=== PATIENT | male | born 1955 | race Caucasian/White ===

== ENCOUNTER → 2017-08-13 | Outpatient (CLI) | payer OTHER | END | disposition home or self-care (01) | LOC: CFH 09:25 | PROVIDERS: ATTEND Orthopaedic Surgery | DX: M48.06 Spinal stenosis, lumbar region (principal); M48.07 Spinal stenosis, lumbosacral region; Z98.1 Arthrodesis status; Z98.890 Other specified postprocedural states | CPT/HCPCS: 72110 ==

== ENCOUNTER 2018-03-30 08:56 | Inpatient (IN) | payer OTHER ==
[~2018-03-30] VITALS: Ht 175.3 cm; Wt 83.6 kg
[2018-03-30] MEDS ORDERED: CHOL100011 PO (09:38)
[2018-03-30] MEDS ORDERED: TRAM50TA2 PO (09:38)
[2018-03-30] MEDS ORDERED: TIZA4CAP PO (09:38)
[2018-03-30] MEDS ORDERED: ATOR40TA78 PO (09:38)
[2018-03-30] MEDS ORDERED: ZEBETA PO (09:38)
[2018-03-30] MEDS ORDERED: OMEG-160 PO (09:38)
[2018-03-30] MEDS ORDERED: ASPI-650 PO (09:38)
[2018-03-30] MEDS ORDERED: MAGN300C PO (09:38)
[2018-03-30] MEDS ORDERED: NITR4.1S2 TL (09:38)
[2018-03-30] MEDS ORDERED: LACT1CAP5 PO (09:38)
[2018-03-30] MEDS ORDERED: LISI-170 PO (09:38)
[2018-03-30 09:56] LABS: BASOPHILS # (AUTO) 0.01 x10^3/uL (0-0.1); BASOPHILS % (AUTO) 0 % (0-1); EOSINOPHILS # (AUTO) 0.01 x10^3/uL (0-0.4); EOSINOPHILS % (AUTO) 0 % (1-7); LYMPHOCYTES # (AUTO) 1.33 x10^3/uL (1-3.4); LYMPHOCYTES % (AUTO) 14 % (22-44); MD NO; MEAN CORPUSCULAR HGB CONC 33.3 g/dL (33.2-36.2); MEAN CORPUSCULAR VOLUME 96.2 fL (81-97); MEAN PLATELET VOLUME 10.7 fL (7.4-10.4); MONOCYTES # (AUTO) 0.59 x10^3/uL (0.2-0.8); MONOCYTES % (AUTO) 6 % (2-9); NEUTROPHILS # (AUTO) 7.84 x10^3/uL (1.8-6.8); NEUTROPHILS % (AUTO) 80 % (42-75); PLATELET COUNT 198 x10^3/uL (130-400); RED BLOOD COUNT 4.65 x10^6/uL (4.38-5.82); RED CELL DISTRIBUTION WIDTH 16.3 % (9.4-14.8)
[2018-03-30] MEDS ORDERED: SODIUM CHLORIDE FLUSH 10ML SYR IVF ONE (10:00)
[2018-03-30] MEDS ORDERED: SODIUM CHLORIDE 0.9% 1,000ML IVBOLUS ONE (10:00)
[2018-03-30 10:07] LABS: ALBUMIN 2.9 g/dL (3.4-5.0); ANION GAP 10 mmol/L (5-15); CALCIUM 8.4 mg/dL (8.5-10.1); CHLORIDE 108 mmol/L (98-107)
[2018-03-30 10:10] LABS: ALANINE AMINOTRANSFERASE 30 U/L (12-78); ALKALINE PHOSPHATASE 168 U/L (45-117); BILIRUBIN,TOTAL 0.9 mg/dL (0.2-1.0); CREATININE 0.67 mg/dL (0.7-1.3); TOTAL PROTEIN 7.3 g/dL (6.4-8.2)
[2018-03-30 10:27] LABS: HEMOGLOBIN A1C 6.3 % (4.2-6.3)
[2018-03-30] MEDS ORDERED: OMNIPAQUE 350 MG/ML, 100ML BOTTLE ONE (10:53)
[2018-03-30 11:42] LABS: MICROSCOPIC NOT IND
[2018-03-30 11:52] LABS: CULTURE INDICATED? NO
[2018-03-30] MEDS ORDERED: CEFOTETAN PMX 2GM/50ML 50 ML IV ONE (13:00)
[2018-03-30] MEDS ORDERED: METRONIDAZOLE PMX 500MG/100ML 100 ML IV ONE (13:00)
[2018-03-30] MEDS ORDERED: METRONIDAZOLE PMX 500MG/100ML 100 ML ONE (13:07)
[2018-03-30 15:30] LABS: INTERNATIONAL NORMALIZED RATIO 1.18 (0.93-1.1); PROTHROMBIN TIME 12.1 Seconds (9.6-11.5)
[2018-03-30] MEDS ORDERED: ONDANSETRON ODT 4 MG PO PRN (15:30)
[2018-03-30] MEDS ORDERED: hydrALAzine 20 MG/ML, 1ML IVPush PRN (15:30)
[2018-03-30] MEDS ORDERED: LORazepam 2 MG/ML, 1ML IVPush PRN (15:30)
[2018-03-30] MEDS ORDERED: ONDANSETRON 2MG/ML, 2ML IVPush PRN (15:30)
[2018-03-30] MEDS ORDERED: POTASSIUM CHLORIDE 20 MEQ in LACTATED RINGERS 1,000 ML IV SCH (15:30)
[2018-03-30 15:47] LABS: CLOSTRIDIUM DIFFICILE ANTIGEN NEGATIVE; CLOSTRIDIUM DIFFICILE TOXIN NEGATIVE (Negative)
[2018-03-30 15:50] VITALS: BP 128/82
[2018-03-30 16:00] LABS: HCT (SEDRATE) 44.7 % (39.2-51.8)
[2018-03-30] MEDS: HEPARIN 5,000 UNITS/ML, 1ML SQ SCH (16:35)
[2018-03-30] MEDS: POTASSIUM CHLORIDE 20 MEQ, MAGNESIUM SULFATE 1 GM, FOLIC ACID 1 MG, THIAMINE 100 MG, MV... IV SCH (16:36)
[2018-03-30] MEDS: morphine SULFATE 10 MG/ML, 1ML IVPush PRN (16:36)
[2018-03-30] MEDS: PIPERACILLIN/TAZO/PMX 3.375GM 50 ML IV SCH ×2 (16:36→21:06)
[2018-03-30 17:16] LABS: ALANINE AMINOTRANSFERASE 25 U/L (12-78); ALBUMIN 2.6 g/dL (3.4-5.0); BILIRUBIN, DIRECT 0.6 mg/dL (0.1-0.2); IRON LEVEL 83 mcg/dL (65-175)
[2018-03-30 17:20] LABS: % IRON SATURATION 30 % (20-55); ALKALINE PHOSPHATASE 147 U/L (45-117); BILIRUBIN,INDIRECT 0.4 mg/dL (0.0-2.0); TOTAL IRON BINDING CAPACITY 276 mcg/dL (250-450); TOTAL PROTEIN 6.3 g/dL (6.4-8.2)
[2018-03-30 19:10] VITALS: BP 109/69
[2018-03-31 01:14] VITALS: BP 140/85
[2018-03-31] MEDS: HEPARIN 5,000 UNITS/ML, 1ML SQ SCH ×4 (01:20→23:21)
[2018-03-31] MEDS: morphine SULFATE 10 MG/ML, 1ML IVPush PRN ×2 (01:32→22:30)
[2018-03-31] MEDS: PIPERACILLIN/TAZO/PMX 3.375GM 50 ML IV SCH ×4 (03:31→22:30)
[2018-03-31 05:12] LABS: CHLORIDE 112 mmol/L (98-107)
[2018-03-31 05:18] LABS: BASOPHILS # (AUTO) 0.07 x10^3/uL (0-0.1); BASOPHILS % (AUTO) 1 % (0-1); EOSINOPHILS # (AUTO) 0.06 x10^3/uL (0-0.4); EOSINOPHILS % (AUTO) 1 % (1-7); LYMPHOCYTES % (AUTO) 19 % (22-44); MD NO; MEAN CORPUSCULAR HEMOGLOBIN 32.2 pg (27.5-34.5); MEAN CORPUSCULAR HGB CONC 33.7 g/dL (33.2-36.2); MEAN CORPUSCULAR VOLUME 95.6 fL (81-97); MEAN PLATELET VOLUME 10.7 fL (7.4-10.4); MONOCYTES # (AUTO) 0.79 x10^3/uL (0.2-0.8); MONOCYTES % (AUTO) 10 % (2-9); NEUTROPHILS # (AUTO) 5.67 x10^3/uL (1.8-6.8); NEUTROPHILS % (AUTO) 70 % (42-75); PLATELET COUNT 136 x10^3/uL (130-400); RED BLOOD COUNT 3.89 x10^6/uL (4.38-5.82)
[2018-03-31 05:21] LABS: ANION GAP 9 mmol/L (5-15); CALCIUM 8.1 mg/dL (8.5-10.1); CHOL/HDL RATIO 4.4; CHOLESTEROL, TOTAL 87 mg/dL (140-239); CREATININE 0.54 mg/dL (0.7-1.3); HDL CHOL % 23 % (26-37); HDL CHOLESTEROL (DIRECT) 20 mg/dL (40-60); LDL CHOLESTEROL,CALCULATED 50 mg/dL (54-169); LDL/HDL RATIO 2.5 (0.5-3.0); TRIGLYCERIDES 84 mg/dL (50-200); VLDL CHOLESTEROL 17 mg/dL (0-25)
[2018-03-31 07:04] VITALS: BP 150/79
[2018-03-31] MEDS: PANTOPRAZOLE 40 MG IV IVPush SCH (07:28)
[2018-03-31 13:31] VITALS: BP 103/64
[2018-03-31 15:57] LABS: BASOPHILS % (AUTO) 1 % (0-1); EOSINOPHILS # (AUTO) 0.05 x10^3/uL (0-0.4); EOSINOPHILS % (AUTO) 1 % (1-7); LYMPHOCYTES # (AUTO) 1.77 x10^3/uL (1-3.4); LYMPHOCYTES % (AUTO) 19 % (22-44); MD NO; MEAN CORPUSCULAR HEMOGLOBIN 32.6 pg (27.5-34.5); MEAN CORPUSCULAR HGB CONC 33.7 g/dL (33.2-36.2); MEAN CORPUSCULAR VOLUME 96.6 fL (81-97); MEAN PLATELET VOLUME 10.8 fL (7.4-10.4); MONOCYTES % (AUTO) 7 % (2-9); NEUTROPHILS # (AUTO) 6.66 x10^3/uL (1.8-6.8); NEUTROPHILS % (AUTO) 73 % (42-75); PLATELET COUNT 152 x10^3/uL (130-400); RED BLOOD COUNT 4.12 x10^6/uL (4.38-5.82); RED CELL DISTRIBUTION WIDTH 15.8 % (9.4-14.8)
[2018-03-31] MEDS: POTASSIUM CHLORIDE 20 MEQ, MAGNESIUM SULFATE 1 GM, FOLIC ACID 1 MG, THIAMINE 100 MG, MV... IV SCH (16:13)
[2018-03-31 16:14] LABS: ALANINE AMINOTRANSFERASE 22 U/L (12-78); ALBUMIN 2.7 g/dL (3.4-5.0); ANION GAP 10 mmol/L (5-15); CALCIUM 8.5 mg/dL (8.5-10.1); CHLORIDE 109 mmol/L (98-107); CREATININE 0.72 mg/dL (0.7-1.3)
[2018-03-31 16:16] LABS: ALKALINE PHOSPHATASE 145 U/L (45-117); BILIRUBIN,TOTAL 1.6 mg/dL (0.2-1.0); TOTAL PROTEIN 6.6 g/dL (6.4-8.2)
[2018-03-31 17:29] LABS: OCCULT BLOOD NEGATIVE (NEGATIVE)
[2018-03-31 18:47] VITALS: BP 117/74
[2018-04-01 02:50] VITALS: BP 108/69
[2018-04-01] MEDS: PIPERACILLIN/TAZO/PMX 3.375GM 50 ML IV SCH ×2 (04:22→10:54)
[2018-04-01] MEDS: PANTOPRAZOLE 40 MG IV IVPush SCH (07:42)
[2018-04-01] MEDS: HEPARIN 5,000 UNITS/ML, 1ML SQ SCH (07:42)
[2018-04-01 08:01] LABS: BASOPHILS # (AUTO) 0.02 x10^3/uL (0-0.1); BASOPHILS % (AUTO) 0 % (0-1); EOSINOPHILS # (AUTO) 0.08 x10^3/uL (0-0.4); EOSINOPHILS % (AUTO) 1 % (1-7); LYMPHOCYTES # (AUTO) 1.26 x10^3/uL (1-3.4); LYMPHOCYTES % (AUTO) 18 % (22-44); MD NO; MEAN CORPUSCULAR HEMOGLOBIN 32.3 pg (27.5-34.5); MEAN CORPUSCULAR HGB CONC 33.6 g/dL (33.2-36.2); MEAN CORPUSCULAR VOLUME 96.1 fL (81-97); MONOCYTES # (AUTO) 0.54 x10^3/uL (0.2-0.8); MONOCYTES % (AUTO) 8 % (2-9); NEUTROPHILS % (AUTO) 73 % (42-75); PLATELET COUNT 124 x10^3/uL (130-400); RED BLOOD COUNT 3.91 x10^6/uL (4.38-5.82); RED CELL DISTRIBUTION WIDTH 16.2 % (9.4-14.8)
[2018-04-01 08:13] LABS: ALANINE AMINOTRANSFERASE 21 U/L (12-78); ALBUMIN 2.4 g/dL (3.4-5.0); ANION GAP 9 mmol/L (5-15); CALCIUM 7.6 mg/dL (8.5-10.1); CHLORIDE 109 mmol/L (98-107); CREATININE 0.55 mg/dL (0.7-1.3)
[2018-04-01 08:16] LABS: ALKALINE PHOSPHATASE 130 U/L (45-117); BILIRUBIN,TOTAL 1.6 mg/dL (0.2-1.0)
[2018-04-01 08:20] VITALS: BP 129/73
[2018-04-01 12:13] VITALS: BP 147/88
[2018-04-01] MEDS ORDERED: CIPR250T27 PO (14:54)
[2018-04-01] MEDS ORDERED: METR500T PO (14:57)
[2018-04-01] MEDS: POTASSIUM CHLORIDE 20 MEQ, MAGNESIUM SULFATE 1 GM, FOLIC ACID 1 MG, THIAMINE 100 MG, MV... IV SCH (15:30)
== END 2018-04-01 15:55 | disposition home or self-care (01) | DRG 392 ==
LOC: ED 09:57 → EDIP 12:38 → 4WST 13:22 → DCLOUNGE 04-01 15:45
PROVIDERS: ADMIT Internal Medicine Pulmonary Disease; ATTEND Internal Medicine Pulmonary Disease
DX: K52.9 Noninfective gastroenteritis and colitis, unspecified (principal); D68.59 Other primary thrombophilia; E87.2 Acidosis; E44.0 Moderate protein-calorie malnutrition; Z88.8 Allergy status to other drugs, medicaments and biological substances; Z68.27 Body mass index [BMI] 27.0-27.9, adult; E78.5 Hyperlipidemia, unspecified; I25.10 Atherosclerotic heart disease of native coronary artery without angina pectoris; I25.2 Old myocardial infarction; F10.10 Alcohol abuse, uncomplicated; K70.31 Alcoholic cirrhosis of liver with ascites; N20.0 Calculus of kidney
CPT/HCPCS: 36415; 74177; 76700; 80048; 80053; 80061; 80076; 80307; 81003; 82043; 82272; 82728; 82977; 83036; 83540; 83550; 83605; 83690; 85025; 85610; 85651; 86140; 86704; 86706; 86708; 86803; 87046; 87324; 87340; 99285; J1644; J2543; J3411; J3475; J3480; Q0162; Q9967; C9113; J2270; J7030; J7120; J7121

== ENCOUNTER → 2018-04-29 | Outpatient (CLI) | payer OTHER ==
[~2018-04-29] MED LIST: ASPI-650 PO; ATOR40TA78 PO; CHOL100011 PO; CIPR250T27 PO; LACT1CAP5 PO; LISI-170 PO; MAGN300C PO; METR500T PO; NITR4.1S2 TL; OMEG-160 PO; REGADENOSON 0.4 MG/5 ML SYRINGE ONE; TIZA4CAP PO; TRAM50TA2 PO; ZEBETA PO
== END | disposition home or self-care (01) ==
LOC: CFH 08:48
PROVIDERS: ATTEND Internal Medicine Cardiovascular Disease
DX: I21.19 ST elevation (STEMI) myocardial infarction involving other coronary artery of inferior wall (principal); I25.89 Other forms of chronic ischemic heart disease
CPT/HCPCS: 78452; 93017; A9502; J2785

== ENCOUNTER → 2020-03-24 | Outpatient (CLI) | payer OTHER ==
[~2020-03-24] MED LIST changes: -REGADENOSON 0.4 MG/5 ML SYRINGE ONE
== END | disposition home or self-care (01) ==
LOC: CFH 09:49
PROVIDERS: ATTEND Internal Medicine Geriatric Medicine
DX: K70.31 Alcoholic cirrhosis of liver with ascites (principal); K57.90 Diverticulosis of intestine, part unspecified, without perforation or abscess without bleeding; K52.9 Noninfective gastroenteritis and colitis, unspecified; I21.9 Acute myocardial infarction, unspecified; K75.9 Inflammatory liver disease, unspecified; D64.9 Anemia, unspecified; K80.20 Calculus of gallbladder without cholecystitis without obstruction; E53.8 Deficiency of other specified B group vitamins; E11.9 Type 2 diabetes mellitus without complications; A41.9 Sepsis, unspecified organism
CPT/HCPCS: 76700

== ENCOUNTER 2020-05-18 08:00 | Outpatient (CLI) | payer OTHER ==
[~2020-05-18 08:00] MED LIST changes: +FISH OIL 1,3601 EACH PO; -OMEG-160 PO
== END 2020-05-18 23:59 | disposition home or self-care (01) ==
LOC: LAB 08:00
PROVIDERS: ATTEND Surgery
DX: Z11.59 Encounter for screening for other viral diseases (principal)
CPT/HCPCS: 36415; 87635

== ENCOUNTER 2020-05-22 08:00 | Outpatient (CLI) | payer OTHER ==
[~2020-05-22] VITALS: Ht 170.2 cm; Wt 86.3 kg
[2020-05-22] MEDS ORDERED: LACTATED RINGERS 1,000 ML IV SCH (13:26)
[2020-05-22] MEDS ORDERED: CHLORHEXIDINE 15 ML UDC MM ONE (13:30)
[2020-05-22] MEDS ORDERED: BUPIVACAINE/EPI 0.5% 1:200K ONE (13:52)
[2020-05-22] MEDS ORDERED: BACITRACIN 50,000 UNIT ONE (13:53)
[2020-05-22 13:56] VITALS: BP 96/67
[2020-05-22] MEDS ORDERED: ALBUTEROL SULFATE 2.5 MG/3 ML ONE (13:56)
[2020-05-22 14:09] LABS: ANION GAP 9 mmol/L (5-15); CALCIUM 9.5 mg/dL (8.5-10.1); CHLORIDE 106 mmol/L (98-107)
[2020-05-22 14:10] LABS: CREATININE 1.06 mg/dL (0.7-1.3)
[2020-05-22 14:23] VITALS: BP 107/73
[2020-05-22] MEDS ORDERED: SPIR50TA4 PO (14:29)
[2020-05-22] MEDS ORDERED: OMEP-110 PO (14:29)
[2020-05-22] MEDS ORDERED: GABAP (14:29)
[2020-05-22] MEDS ORDERED: METF500T17 PO (14:29)
[2020-05-22] MEDS ORDERED: HYDR-3241 PO (14:29)
[2020-05-22] MEDS ORDERED: FURO20TA3 PO (14:29)
[2020-05-22] MEDS ORDERED: SUVO20TA PO (14:29)
[2020-05-22] MEDS ORDERED: GABA300C PO (14:29)
[2020-05-22] MEDS ORDERED: GLIM2TAB7 PO (14:29)
[2020-05-22] MEDS ORDERED: BISO10TA PO (14:29)
[2020-05-22] MEDS ORDERED: ALBUTEROL SULFATE 2.5 MG/3 ML NPPB ONE (14:30)
== END 2020-05-22 23:59 | disposition home or self-care (01) ==
LOC: STAR 08:00 → EDSTATUS 14:30 → OUT 15:13 → STAR 23:59
PROVIDERS: ATTEND Surgery
DX: K42.9 Umbilical hernia without obstruction or gangrene (principal); Z53.8 Procedure and treatment not carried out for other reasons; K72.90 Hepatic failure, unspecified without coma; E11.9 Type 2 diabetes mellitus without complications; I10 Essential (primary) hypertension; F17.210 Nicotine dependence, cigarettes, uncomplicated; Z79.899 Other long term (current) drug therapy; Z88.8 Allergy status to other drugs, medicaments and biological substances
CPT/HCPCS: 36415; 80048; 82962; 93005; 94640; J7120; J7613; 87635

== ENCOUNTER → 2020-08-23 | Outpatient (CLI) | payer OTHER ==
[~2020-08-23] MED LIST changes: +BISO10TA PO; +FURO20TA3 PO; +GABA300C PO; +GABAP; +GLIM2TAB7 PO; +HYDR-3241 PO; +METF500T17 PO; +OMEP-110 PO; +SPIR50TA4 PO; +SUVO20TA PO
== END | disposition home or self-care (01) ==
LOC: CFH 08:44
PROVIDERS: ATTEND Internal Medicine Geriatric Medicine
DX: N20.0 Calculus of kidney (principal); K75.3 Granulomatous hepatitis, not elsewhere classified; N28.89 Other specified disorders of kidney and ureter; K76.6 Portal hypertension; R16.1 Splenomegaly, not elsewhere classified
CPT/HCPCS: 76700